=== PATIENT | female | born 1990 ===

== ENCOUNTER 2022-11-02 08:55 | Day surgery (SDC) | payer OTHER ==
[~2022-11-02] VITALS: Ht 152.4 cm; Wt 56.7 kg
[~2022-11-02 08:55] MED LIST: ACID REDUCER20 M1 PO
[2022-11-02] MEDS ORDERED: NEURONTIN300 MG PO (14:45)
[2022-11-02] MEDS ORDERED: PERCOCET 5-3251 EACH PO (14:45)
[2022-11-03] MEDS ORDERED: NEURONTIN300 MG PO (16:10)
[2022-11-03] MEDS ORDERED: PERCOCET 5-3251 EACH PO (16:10)
== END 2022-11-02 21:40 | disposition home or self-care (01) ==
LOC: CIR.AMB 08:55
PROVIDERS: ATTEND Surgery
DX: L05.01 Pilonidal cyst with abscess (principal); I10 Essential (primary) hypertension; Z20.822 Contact with and (suspected) exposure to COVID-19; Z88.6 Allergy status to analgesic agent